=== PATIENT | female | born 1975 | race African-American/Black ===

== ENCOUNTER 2021-03-09 04:03 | Inpatient (IN) | payer BC, OTHER ==
[~2021-03-09] VITALS: Ht 167.6 cm; Wt 110.2 kg
--- NOTE | ~2021-03-09 | EMS ---
[address] [address] EMS Patient Care Report Name: NORRIS BEAULIEU Room #: 349-I ADM IN .R.#: [id number] Admission: 03/09/21 Attend Phys: Becca Hernandez MD Discharge: Date of : 71 Report #: [id number] THIS REPORT FOR: //name// Report Transmitted: 03/11/2021 08:52 EMS Care Summary [place], [place]/[facility] Incident [id number] @ 03/09/2021 03:25 Incident Location [address] [place] [address] Patient NORRIS BEAULIEU Female, 45 Years 1975 Patient Address [address] [place] [address] Patient History None Reported, Patient Allergies No known allergies, Patient Medications None Reported, Chief Complaint Can't breathe Disposition Transported No Lights/[place] Dispatch Reason Breathing Problem Transported To [facility] Narrative Called for SOB. Upon arrival, pt was PASTOR x 3 walking down the steps outside to the EMS cot where she sat down wand was then loaded into the ambulance all w/o incident. Pt stated she tested positive for Covid on Wednesday, she did not get the vaccine. She c/o SOB w/coughing. [place] [address] EMS Patient Care Report Name: NORRIS BEAULIEU Room #: 349-I [facility] IN [facility]#: [id number] Admission: 03/09/21 Attend Phys: Becca Hernandez MD Discharge: Date of : 71 Report #: [id number] further eval & tx. Vitals obtained. Room SaO2 as 90%, pt given 4 lpm of O2 via NC and it improved to 98%. Vitals repeated. En route; no significant changes. RR to the ER. Arrived: pt taken to ER #5 and moved to their bed w/o incident. Pt care & report to ER staff. Initial Vitals @03:42P: 98,R: 20,BP: 131/83,Pain: 0/10,GCS: 15,CO: 4,SpO2: 98,Revised Trauma: 12, @03:39P: 103,R: 20,BP: 134/80,Pain: 0/10,GCS: 15,CO: 7,SpO2: 91,Revised Trauma: 12, Assessments @03:48MENTAL:Time Oriented,Person Oriented,Place Oriented,Event Oriented,SKIN:HEENT:LUNG SOUNDS:ABDOMEN:PELVIS//GI:EXTREMITIES:Left Arm: No Abnormalities,Right Arm: No Abnormalities,Left Leg: No Abnormalities,Right Leg: No Abnormalities,PULSE:Radial: 2+ Normal,NEURO:No Abnormalities, Impression Acute Respiratory Distress (Dyspnea) Procedures @03:48ALS AssessmentResponse: UnchangedSucceeded@03:48StretcherResponse: Unchanged@03:48Oxygen FlowRate: 4 Device: Nasal Cannula (NC) Response: ImprovedSucceeded Timeline 03:23,Call Received 03:23,Dispatch Notified 03:25,Dispatched 03:26,En Route 03:34,On Scene 03:35,At Patient 03:39,BP: 134/80 M,PULSE: 103,RR: 20 R,SPO2: 91 Ox,ETCO2: ,BG: ,PAIN: 0,GCS: 15, 03:42,BP: 131/83 M,PULSE: 98,RR: 20 R,SPO2: 98 Ox,ETCO2: ,BG: ,PAIN: 0,GCS: 15, 03:45,Depart Scene 03:48,ALS Assessment,Response: UnchangedSucceeded, 03:48,Stretcher,Response: Unchanged 03:48,Oxygen FlowRate: 4 Device: Nasal Cannula (NC) Response: ImprovedSucceeded, 03:59,At Destination 04:08,Call Closed Disclaimer v1.1 Copyright 2020 [employer] This EMS Care Summary contains data elements from the applicable legal record (which may be displayed differently). It is designed to provide pertinent [address] [address] EMS Patient Care Report Name: CHRISTOFERNORRIS Room #: 349-I [facility].#: [id number] Admission: 03/09/21 Attend Phys: Becca Hernandez MD Discharge: Date of : 71 Report #: [id number] information for the following purposes: continuity of care, clinical quality, and state data reporting. The complete legal record is available to ED staff and administrators of the receiving hospital in [facility]'s Patient Tracker. All data is provided "as is."
[~2021-03-09 04:03] MED LIST: CITRANATAL 901 EAC1 PO
[2021-03-09 04:04] VITALS: BP 131/74
[2021-03-09] MEDS ORDERED: ACETAMINOPHEN PO (04:19)
[2021-03-09] MEDS ORDERED: IBUPROFEN LIQUID PO (04:19)
[2021-03-09 04:41] LABS: WBC 8.1 thou/uL (4.0-11.0)
[2021-03-09 04:43] LABS: HEMATOCRIT 34.1 % (37.0-47.0); HEMOGLOBIN 11.3 gm/dL (12.0-15.0); MCH 28.2 pg (26.0-34.0); MCHC 33.2 g/dL (28.0-37.0); MCV 84.9 fL (80.0-100.0); RBC 4.02 mil/uL (4.20-5.00); RDW 14.1 % (10.5-14.5)
[2021-03-09 04:45] LABS: CALCIUM 7.9 mg/dL (8.5-10.1); CREATININE 0.8 mg/dL (0.6-1.0); POTASSIUM 3.4 mmol/L (3.5-5.1)
[2021-03-09 04:52] LABS: ALBUMIN 3.2 g/dL (3.4-5.0); TOTAL BILIRUBIN 0.4 mg/dL (0.2-1.0); TOTAL PROTEIN 7.5 g/dL (6.4-8.2)
[2021-03-09 05:24] LABS: PLATELET ESTIMATE NORMAL
[2021-03-09 05:25] LABS: PLATELET COUNT 147 thou/uL (150-400)
[2021-03-09 05:27] LABS: ABSOLUTE NEUTROPHILS 6.4 thou/uL (1.4-8.2)
--- NOTE | 2021-03-09 07:08 | NUR ---
TOOK OVER CARE FROM LUCRECIA MARY AT THIS TIME
--- NOTE | 2021-03-09 09:30 | EKG ---
[address] [address] ELECTROCARDIOGRAM REPORT Name: NORRIS BEAULIEU Room #: 170-5 ADM IN M.R.#: [id number] Admission: 03/09/21 Attend Phys: Becca Hernandez MD Discharge: Date of : 71 Report #: [id number] [facility] ED Test Date: 2021-03-09 Test Time: 04:47:04 Pat Name: NORRIS BEAULIEU Department: Room: 170 Gender: F Security Assessor: JEANINE : 1975 Requested By: Joaquín Dixon Order Number: [id number] MD: Jacky Lucas Measurements Intervals [place] Rate: 93 P: 40 MS: 143 QRS: 21 QRSD: 90 T: 13 QT: 340 QTc: 423 Interpretive Statements Sinus rhythm No previous ECG available for comparison Electronically Signed On 03-09-2021 9:30:14 CDT by Jacky Lucas [email or web address] <ELECTRONICALLY SIGNED> By: Jacky Lucas MD 03/09/21 0930 [id number] Jacky Lucas MD /EPI
[2021-03-09 10:05] LABS: BE(vivo) 2.5 mmol/L (-2 to +3); HCO3 27.6 mmol/L (22.0-26.0); PCO2 44.7 mmHg (35.0-45.0); PO2 69.6 mmHg (80.0-100.0); pH 7.408 (7.360-7.450)
--- NOTE | 2021-03-09 23:38 | NUR ---
Updated pt's "Frederic" regarding pt's status with pt's permission requests to give pt hot water
--- NOTE | 2021-03-10 06:00 | HC ---
[facility] [place] [address] CONSULTATION Name: NORRIS BEAULIEU Room #: 170-5 ADM IN ..#: [id number] Admission: 03/09/21 Attend Phys: Becca Hernandez MD Discharge: Date of : 71 Report #: [id number] THIS REPORT FOR: cc: FAM - Family physician unknown FAM - Family physician unknown Merritt Bhatti MD ~ DATE OF SERVICE: 03/09/2021 INFECTIOUS DISEASE CONSULTATION ATTENDING PHYSICIAN: Dr. Hernandez. REASON FOR EVALUATION: COVID-19 infection, complicated by pneumonitis, respiratory failure. HISTORY OF PRESENT ILLNESS: Chart reviewed, the patient examined. This is a 45-year-old woman with a history that is minimal, who noted onset of illness roughly 7-8 days ago. She describes being exposed, subsequently developed fevers, some of which have been high-grade up to 102.5 and then developed progressive dyspnea with associated cough, primarily nonproductive. Denies significant GI related complaints. Due to worsening signs and symptoms over the last 24-36 hours, she had presented to the emergency room. Again, repeat coronavirus testing was positive as well. She was found to have a lactic acid 0.8. Chest x-ray did show multifocal bilateral pulmonary infiltrates. ABG showed pH 7.408, pCO2 of 44.7, pO2 of 69.6 on 4 liters. She was febrile to 100 with tachypnea, respiratory rate of 38 and placed on empiric therapy with azithromycin, ceftriaxone, remdesivir. ALLERGIES: None known. MEDICATIONS: Include ipratropium, albuterol inhaler, enoxaparin, remdesivir, received doses of azithromycin, ceftriaxone, dexamethasone as well. PAST MEDICAL HISTORY: Prediabetes, breast reduction. SOCIAL HISTORY: She is , nonsmoker. FAMILY HISTORY: Noncontributory. REVIEW OF SYSTEMS: Otherwise, unremarkable. PHYSICAL EXAMINATION: GENERAL: She appears ill, not overtly toxic. She is in moderate distress, frequent coughing, exacerbates her appearance of illness. Appears reasonably well nourished. VITAL SIGNS: Temperature 100, pulse 99, respirations 32, blood pressure is [facility] [address] [place] [address] CONSULTATION Name: NORRIS BEAULIEU Room #: 170-5 [facility] IN [facility]#: [id number] Admission: 03/09/21 Attend Phys: Becca Hernandez MD Discharge: Date of : 71 Report #: [id number] 132/73. SKIN: Warm, dry, no rashes. She is not diaphoretic. HEENT: Normocephalic. Extraocular muscles intact. Nasal cannula in place. NECK: Supple. LUNGS: Bilateral scattered coarse breath sounds. HEART: Regular, tachycardic. I do not appreciate murmur. ABDOMEN: Soft, nontender, mildly distended. GENITOURINARY AND RECTAL: Deferred. LABORATORY DATA: CBC: White count of 8.1, H and H 11.3 and 34.1, platelets of 147. Lactic acid 0.8. Electrolytes: Sodium 136, potassium 3.4, chloride 97, bicarbonate is 31, anion gap of 8, BUN and creatinine 7 and 0.8. AST of 81, ALT of 46. Albumin 32, total protein 7.5, estimated GFR of 93. ASSESSMENT AND PLAN: Coronavirus-19 infection, complicated by pneumonitis, respiratory failure. We will continue current approach. She has received some directed therapy. We will continue remdesivir and corticosteroids as well as empiric therapy. We will add ivermectin, Actemra, vitamins to her regimen as well. She remains somewhat tenuous at this point, fortunately, she did have a lot of underlying medical issues. Continue supportive care with supplemental oxygen and wean as allowed. Monitor expectantly at risk for perhaps worsening clinical status. <ELECTRONICALLY SIGNED> By: Merritt Bhatti MD 03/10/21 0600 0930 06 Merritt Bhatti MD /nt
[2021-03-10 06:04] LABS: ALBUMIN 2.8 g/dL (3.4-5.0); ANION GAP 1 mmol/L (7-16); BUN 8 mg/dL (7-18); CALCIUM 8.1 mg/dL (8.5-10.1); CHLORIDE 104 mmol/L (98-107); CO2 31 mmol/L (21-32); CREATININE 0.8 mg/dL (0.6-1.0); DIRECT BILIRUBIN < 0.1 mg/dL (<0.1-0.2); GLUCOSE 130 mg/dL (74-106); PHOSPHORUS 2.4 mg/dL (2.6-4.7); SGOT 91 U/L (15-37); SGPT 51 U/L (14-59); SODIUM 136 mmol/L (136-145); TOTAL BILIRUBIN 0.3 mg/dL (0.2-1.0)
[2021-03-10 07:11] VITALS: BP 128/78
[2021-03-10 07:56] VITALS: BP 131/85
[2021-03-10 10:34] VITALS: BP 145/91
[2021-03-10 20:15] VITALS: BP 111/67
--- NOTE | 2021-03-10 23:43 | NUR ---
PT ALERT AND ORIENTED X4. VSS AFEBRILE. NO C/O PAIN. SOA WITH EXERTION. PT USING BEDPAN. SATS WNL ON OPTI CINDY PRESENTLY. BED DOWN. CALL LIGHT IN REACH. BED ALARM IS ON.
[2021-03-11 02:37] VITALS: BP 145/93
[2021-03-11 05:42] LABS: ALBUMIN 2.8 g/dL (3.4-5.0); ANION GAP 7 mmol/L (7-16); BUN 13 mg/dL (7-18); CHLORIDE 104 mmol/L (98-107); CO2 29 mmol/L (21-32); CREATININE 0.6 mg/dL (0.6-1.0); DIRECT BILIRUBIN < 0.1 mg/dL (<0.1-0.2); GLUCOSE 131 mg/dL (74-106); PHOSPHORUS 3.2 mg/dL (2.5-4.9); POTASSIUM 4.3 mmol/L (3.5-5.1); SGOT 66 U/L (15-37); SGPT 54 U/L (30-65); SODIUM 140 mmol/L (136-145); TOTAL BILIRUBIN 0.3 mg/dL (0.2-1.0); TOTAL PROTEIN 6.9 g/dL (6.4-8.2)
--- NOTE | 2021-03-11 05:54 | NUR ---
AROUND 0230 PT STATED SHE FELT LIKE SHE WAS GETTING TOO MUCH OXYGEN. PT WAS ANXIOUS. RR 45-48. SHE REFUSED ATIVAN. O2 SAT 88-90. NOTIFIED RT. RT WAS IN A CODE IN ICU. 100%NRB MASK APPLIED. SAT INCREASED TO 93-94% WITH OPTIFLO AND NRB. LATER THIS AM PT WAS LESS ANXIOUS. RR 28-32. TYLENOL GIVEN FOR GENERALIZED DISCOMFORT PT STATED FROM LYING IN BED.
[2021-03-11 08:03] VITALS: BP 135/90
[2021-03-11 11:54] VITALS: BP 137/86
--- NOTE | 2021-03-11 12:40 | NUR ---
INITIAL ASSESSMENT: Received consult. RAMILA reviewed chart and spoke with nursing and attending physician. Pt was admitted from home due to COVID pneumonia. Pt placed in Enhanced Isolation. Pt has not received a COVID vaccine. Pt is afebrile and requiring optiflow. Pt is on IV steroids and completing courses of Remdesivir and Ivermectin. RAMILA placed call to pt's room. No answer. RAMILA spoke with pt's , Frederic, via phone. Introduced role of RAMILA. Pt is normally alert/orientated x 4 and lives at home with her and 7 yr old dtr. Prior to admission, pt was independent with ADLs. No use of DME. No hx of HH or post-acute placement. Pt is employed at the [employer]. Pt's primary care is through [facility]. Pt has multiple family members in the healthcare field. RAMILA discussed having a Face Time/Virtual visit with pt via tablet in pt's room. Contact info for SW provided. Therapy evals to be ordered when pt is able to participate. RAMILA is following to assist as needed with discharge planning.
[2021-03-11 15:08] LABS: HIV ANTIBODY Non Reactive (Non Reactive)
[2021-03-11 19:50] VITALS: BP 133/68
--- NOTE | 2021-03-12 | NUR ---
PT SITTING UP IN BED, LUNGS DIMINISHED, OPTI FLOW AND CONTINUOUS PULSE OX INTACT. PT ENCOURAGED TO REST PRONE AND PT DID COMPLY. PT CONTINUES WITH MENSES. PT CHEERFUL WATCHING TV ON PHONE. BED ALARM ON.
--- NOTE | 2021-03-12 03:30 | NUR ---
PT CALLED OUT FOR OPTIFLO BEEPING. PT STATED SHE HAS BEEN LISTENING TO EQUIPMENT BEEP ALL NIGHT, THAT SHE FEELS SHE IS BEING SCAPEGOATED ANXIOUS, THAT STAFF ARE NOT SPENDING ENOUGH TIME IN HER ROOM, THAT SHE WILL TALK TO THE DR ABOUT LEAVING IN THE AM. PT OFFERED TO SPEAK WITH RIVET BUCKER, SHE DECLINED. CHARGE UPDATED. PT EDUCATED THAT STAFF ARE LIMITING EXPOSURE TO COVID. PT REPORTING THAT OPTIFLO IS COLD AND FORCING TO MUCH PRESSURE INTO HER NOSE, EYES ARE WATERING. PT REMINDED THAT THE OPTIFLO IS HIGH CINDY, THAT THE NEXT STEPS ARE BIPAP AND INTUBATION. PT REMINDED HOW WELL HER O2 SATS HAVE BEEN THROUGHOUT THE NIGHT. PT ON PHONE WITH WHILE TALKING WITH NURSE.
[2021-03-12 04:05] VITALS: BP 124/77
[2021-03-12 07:22] VITALS: BP 142/82
--- NOTE | 2021-03-12 07:32 | NUR ---
RT TITRATED PATIENT FROM 98%/50L TO 68%/45L PATIENT SAT IS 95% OR GREATER AFTER TITRATION.
--- NOTE | 2021-03-12 07:53 | NUR ---
Pt with class III extreme obesity, BMI 57.4. Admit with COVID pneumonia. On vitamin pack protocol. BG controlled. Eating about 50%. Low nutrition risk
[2021-03-12 08:31] LABS: ALBUMIN 2.9 g/dL (3.4-5.0); CREATININE 0.7 mg/dL (0.6-1.0); DIRECT BILIRUBIN 0.1 mg/dL (<0.1-0.2); PHOSPHORUS 3.7 mg/dL (2.5-4.9); POTASSIUM 4.2 mmol/L (3.5-5.1); TOTAL BILIRUBIN 0.4 mg/dL (0.2-1.0); TOTAL PROTEIN 6.7 g/dL (6.4-8.2)
[2021-03-12 14:35] VITALS: BP 134/74
--- NOTE | 2021-03-12 14:48 | NUR ---
SW reviewed chart and spoke with nursing and attending physician. Pt remains in Enhanced Isolation due to COVID. Pt is afebrile and requiring optiflow. Pt is on IV abx and IV steroids. Pt has completed Remdesivir. Pt started on Lovenox BID. Therapy evals to be ordered when pt is able to participate. RAMILA is following to assist as needed with discharge planning.
[2021-03-12 19:16] VITALS: BP 148/97
--- NOTE | 2021-03-12 19:47 | NUR ---
PT SITTING UP IN BED. NOT SOA WITH CONVERSATION. PT DENIES NAUSEA. LUNGS COARSE. OPTIFLO INTACT. PT VERBALIZED USING BSC AND WILL CALL FOR ASSISTANCE IF NEEDED.
[2021-03-13 03:44] VITALS: BP 135/72
[2021-03-13 03:49] LABS: HEMATOCRIT 33.9 % (37.0-47.0); HEMOGLOBIN 11.1 gm/dL (12.0-15.0); MCH 27.9 pg (26.0-34.0); MCHC 32.8 g/dL (28.0-37.0); MCV 85.1 fL (80.0-100.0); RBC 3.98 mil/uL (4.20-5.00); RDW 13.9 % (10.5-14.5); WBC 6.1 thou/uL (4.0-11.0)
[2021-03-13 04:05] LABS: ALBUMIN 2.9 g/dL (3.4-5.0); ANION GAP 7 mmol/L (7-16); BUN 15 mg/dL (7-18); CALCIUM 8.1 mg/dL (8.5-10.1); CHLORIDE 100 mmol/L (98-107); CO2 30 mmol/L (21-32); CREATININE 0.7 mg/dL (0.6-1.0); DIRECT BILIRUBIN < 0.1 mg/dL (<0.1-0.2); GLUCOSE 125 mg/dL (74-106); POTASSIUM 4.5 mmol/L (3.5-5.1); SGOT 43 U/L (15-37); SGPT 59 U/L (14-59); SODIUM 137 mmol/L (136-145); TOTAL BILIRUBIN 0.3 mg/dL (0.2-1.0); TOTAL PROTEIN 6.6 g/dL (6.4-8.2)
--- NOTE | 2021-03-13 05:53 | NUR ---
PT REFUSED AM STEROIDS, STATING SHE DOES NOT LIKE HOW THEY MAKE HER FEEL, H/A SICK GROGGY. PT EDUCATED ON PURPOSE AND IMPORTANCE OF STEROIDS. PT STATED HER SAID SHE DOES NOT HAVE TO TAKE THEM. PT STATED MAYBE SHE WILL ASK THE DR FOR A DIFFERENT TYPE OF STEROID. PT INFORMED ON HER BEHAVIORS RESTLESS, FREQUENT CALL LIGHTS HOURLY, FREQUENT REQUESTS FOR OPTIFLO TEMP CHANGES, FREQUENT REQUESTS TO TALK WITH RESPIRATORY ALL NIGHT, NOT SLEEPING, ON THE PHONE, TEARFUL, SHIFTING IN BED THAT ARE PRESENTING ANXIETY, PT ENCOURAGED TO TRY ANXIETY MEDICATION TO BE MORE COMFORTABLE. PT DECLINED. PT ASKING ABOUT DISCHARGE PLAN. TALKED WITH PT ABOUT HER NEED FOR CONTROL WITH PLANS AND DISCUSSED HOW PTS HIGH O2 NEEDS HAVE TO BE IN A HOSPITAL SETTING. TALKED ABOUT NC O2 CAN BE USED AT HOME. PROVIDER NOTIFIED.
[2021-03-13 07:13] VITALS: BP 146/86
--- NOTE | 2021-03-13 09:46 | NUR ---
SW received call from pt's requesting to speak with attending physician regarding steroids. Pt has been refusing current dose of steroids and would like to know if there are other options. RAMILA notified attending physician and requested to have pt call her while physician is in the room seeing her. They can have three-way conversation regarding the recommended medications and additional options. Pt remains in Enhanced Isolation due to COVID. Pt is afebrile and requiring optiflow. Pt is on IV abx and completing course of Remdesivir. Therapy evals to be ordered when pt is able to participate. RAMILA is following to assist as needed with discharge planning.
[2021-03-13 11:21] VITALS: BP 152/85
[2021-03-13 16:53] VITALS: BP 143/87
[2021-03-13 19:12] VITALS: BP 127/70
[2021-03-14 03:50] VITALS: BP 143/81
[2021-03-14 04:31] LABS: HEMOGLOBIN 11.3 gm/dL (12.0-15.0); MCH 28.1 pg (26.0-34.0); MCHC 33.2 g/dL (28.0-37.0); MCV 84.5 fL (80.0-100.0); RBC 4.02 mil/uL (4.20-5.00); RDW 13.9 % (10.5-14.5)
[2021-03-14 04:53] LABS: CALCIUM 8.4 mg/dL (8.5-10.1); CREATININE 0.7 mg/dL (0.6-1.0); POTASSIUM 4.7 mmol/L (3.5-5.1)
[2021-03-14 07:11] VITALS: BP 116/64
[2021-03-14 11:17] VITALS: BP 149/80
--- NOTE | 2021-03-14 13:58 | NUR ---
RAMILA reviewed chart and spoke with nursing and attending physician. Pt remains in Enhanced Isolation due to COVID. Pt is afebrile and requiring optiflow. Pt is on IV abx and IV steroids. PT/OT ordered today to evaluate pt. No weekend discharge planned. RAMILA spoke with pt's , Frederic, via phone. Update provide and questions answered. Frederic states that he has been able to speak with attending physician and ID physician. RAMILA is following to assist as needed with discharge planning.
[2021-03-14 16:17] VITALS: BP 122/72
--- NOTE | 2021-03-14 18:38 | NUR ---
assumed patient care at 0700. a/o x4. anxious. on optiflow. solwy towards poc goals.
[2021-03-14 19:26] VITALS: BP 158/75
--- NOTE | 2021-03-14 22:47 | NUR ---
PT UP IN CHAIR. OPTIFLO CHANGED TO HIGH FLOW NC 4L. LUNGS DIMINISHED. PT TEARFUL AND CRYING APOLOGIZING TO NURSE ABOUT PREVIOUS ENCOUNTERS. PT REASSURED. SMILING TALKING NOT SOA. CALLS FOR ASSISTANCE.
[2021-03-15 05:16] LABS: HEMOGLOBIN 11.6 gm/dL (12.0-15.0); MCH 28.1 pg (26.0-34.0); MCHC 33.2 g/dL (28.0-37.0); MCV 84.7 fL (80.0-100.0); RBC 4.13 mil/uL (4.20-5.00); RDW 13.8 % (10.5-14.5)
[2021-03-15 05:30] VITALS: BP 138/78
[2021-03-15 05:35] LABS: CALCIUM 8.4 mg/dL (8.5-10.1); CREATININE 0.7 mg/dL (0.6-1.0); POTASSIUM 4.8 mmol/L (3.5-5.1)
[2021-03-15 08:08] VITALS: BP 127/77
[2021-03-15 11:15] VITALS: BP 103/61
[2021-03-15 15:23] VITALS: BP 132/66
--- NOTE | 2021-03-15 18:07 | NUR ---
ASSUMED PATIENT CARE AT 0700. A/O X4.TITRATED 02 TO 2L/NC. TOLERATED WELL. UP AD JB. PROGRESSING TOWARDS TO POC GOALS.
[2021-03-15 20:05] VITALS: BP 111/65
[2021-03-16 04:53] VITALS: BP 110/70
--- NOTE | 2021-03-16 06:20 | NUR ---
Pt. moved from 349 to 350 last night. She slept some during the night. Tolerating room air well with no respiratory distress. Cont. on enhanced precaution,afebrile. Up ad ramin in room with steady gait. Pt. verbalized she feels pretty ood and feels like she is ready to go home. Progressing towards discharge goals.
[2021-03-16 07:56] VITALS: BP 137/87
[2021-03-16 11:28] VITALS: BP 133/77
[2021-03-16] MEDS ORDERED: CEFDINIR300 MG PO (12:13)
[2021-03-16] MEDS ORDERED: MEDROLDOSEPACK PO (12:13)
[2021-03-16] MEDS ORDERED: ZINC SULFATE50 MG PO (12:13)
[2021-03-16] MEDS ORDERED: PEPCID20 MG PO (12:14)
[2021-03-16] MEDS ORDERED: VITAMIN C1000 MG PO (12:14)
[2021-03-16] MEDS ORDERED: VITAMIN D325 MC2 PO (12:15)
[2021-03-16 12:31] VITALS: BP 133/77
[2021-03-16 15:25] VITALS: BP 130/83
--- NOTE | 2021-03-16 16:17 | NUR ---
ASSUMED PATIENT CARE AT 0700. A/O X4. TOLERATED ON RA. DOESN'T NEED O2 AT HOME. PROGRESSING TOWARDS POC GOALS. DC TO HOME NOW.
== END 2021-03-16 16:45 | disposition home or self-care (01) | DRG 871 ==
LOC: ER 04:03 → EROBS 05:46 → 3W 05:46 → EROBS 07:16 → 3W 03-10 06:24
PROVIDERS: Emergency Medicine; Hospitalist; Specialist; ADMIT Internal Medicine; ATTEND Internal Medicine
PROC: XW033E5 Introduction of Remdesivir Anti-infective into Peripheral Vein, Percutaneous Approach, New Technology Group 5 (ICD-10-PCS; principal; 2021-03-09)
PROC: XW033H5 Introduction of Tocilizumab into Peripheral Vein, Percutaneous Approach, New Technology Group 5 (ICD-10-PCS; principal; 2021-03-09)
PROC: 5A0935A Assistance with Respiratory Ventilation, Less than 24 Consecutive Hours, High Flow/Velocity Cannula (ICD-10-PCS; principal; 2021-03-09)
PROC: 5A0935A Assistance with Respiratory Ventilation, Less than 24 Consecutive Hours, High Flow/Velocity Cannula (ICD-10-PCS; 2021-03-10)
PROC: 5A0935A Assistance with Respiratory Ventilation, Less than 24 Consecutive Hours, High Flow/Velocity Cannula (ICD-10-PCS; 2021-03-11)
PROC: 5A0935A Assistance with Respiratory Ventilation, Less than 24 Consecutive Hours, High Flow/Velocity Cannula (ICD-10-PCS; 2021-03-12)
PROC: 5A0935A Assistance with Respiratory Ventilation, Less than 24 Consecutive Hours, High Flow/Velocity Cannula (ICD-10-PCS; 2021-03-13)
PROC: 5A0935A Assistance with Respiratory Ventilation, Less than 24 Consecutive Hours, High Flow/Velocity Cannula (ICD-10-PCS; 2021-03-14)
PROC: 5A0935A Assistance with Respiratory Ventilation, Less than 24 Consecutive Hours, High Flow/Velocity Cannula (ICD-10-PCS; 2021-03-15)
DX: A41.9 Sepsis, unspecified organism (principal); U07.1 COVID-19; J12.82 Pneumonia due to coronavirus disease 2019; J96.01 Acute respiratory failure with hypoxia; E46 Unspecified protein-calorie malnutrition; R73.03 Prediabetes; E87.6 Hypokalemia; D64.9 Anemia, unspecified; R74.01 Elevation of levels of liver transaminase levels; Z68.39 Body mass index [BMI] 39.0-39.9, adult; E66.01 Morbid (severe) obesity due to excess calories
CPT/HCPCS: 10879